=== PATIENT | male | born 1950 | race Caucasian/White ===

== ENCOUNTER → 2019-04-28 | Outpatient (REF) | LOC: M LAB LCGH 15:28 | PROVIDERS: ATTEND Orthopaedic Surgery | DX: M72.0 Palmar fascial fibromatosis [Dupuytren] (principal) ==

== ENCOUNTER → 2020-12-28 | Outpatient (REF) | payer MEDICARE | LOC: M LAB REF 14:01 | PROVIDERS: ATTEND Physician Assistant | DX: L82.1 Other seborrheic keratosis (principal) | CPT/HCPCS: 11102; 17000; 88305; G0463 ==

== ENCOUNTER 2024-07-21 15:16 | Observation (INO) | payer MEDICARE ==
[~2024-07-21] VITALS: Ht 165.1 cm; Wt 76.0 kg
[2024-07-21 16:20] LABS: BASO % 0.3 % (0.0-1.0); EOS % 0.3 % (0.0-3.0); HEMOGLOBIN 10.5 g/dl (13.5-17.5); LYMPH # 0.7 10^3/uL (1.5-5.0); LYMPH % 9.6 % (24.0-44.0); MEAN CORPUSCULAR HEMOGLOBIN 29.4 pg (27.0-33.0); MEAN CORPUSCULAR HGB CONC 33.9 g/dl (32.0-36.5); MEAN CORPUSCULAR VOLUME 86.8 fl (80.0-96.0); MONO # 0.3 10^3/uL (0.0-0.8); MONO % 4.6 % (2.0-8.0); NEUTROPHILS # 5.7 10^3/uL (1.5-8.5); NEUTROPHILS % 84.5 % (36.0-66.0); PLATELET COUNT, AUTOMATED 283 10^3/uL (150-450); RED BLOOD COUNT 3.57 10^6/uL (4.30-6.10); WHITE BLOOD COUNT 6.8 10^3/uL (4.0-10.0)
[2024-07-21 16:53] LABS: CALCIUM LEVEL 8.5 MG/DL (8.3-10.6); CREATININE FOR GFR 2.37 MG/DL (0.70-1.30); GLOMERULAR FILTRATION RATE 28.7 (>42); POTASSIUM SERUM 4.3 MMOL/L (3.5-5.1)
[2024-07-21 17:36] LABS: INR 2.09; PROTHROMBIN TIME 23.6 SECONDS (12.5-14.5)
[2024-07-21] MEDS: NS (Normal Saline) 0.9% 1,000 ML IV ONE (18:20)
[2024-07-21] MEDS ORDERED: **hydrALAZINE HCL** 25 MG TAB PO PRN (18:25)
[2024-07-21] MEDS ORDERED: WARF-22 PO (19:06)
[2024-07-21] MEDS ORDERED: CARV12.5 PO (19:06)
[2024-07-21] MEDS ORDERED: PRED20TA PO (19:06)
[2024-07-21] MEDS ORDERED: EZET10TA21 PO (19:06)
[2024-07-21] MEDS ORDERED: SULF400T14 PO (19:06)
[2024-07-21] MEDS ORDERED: PANT40TA29 PO (19:06)
[2024-07-21] MEDS ORDERED: AMLO1TAB25 PO (19:06)
[2024-07-21] MEDS ORDERED: PRIM125TAB PO (19:06)
[2024-07-21] MEDS ORDERED: PHEN100C PO (19:06)
[2024-07-21] MEDS ORDERED: REPA140I PO (19:06)
[2024-07-21] MEDS ORDERED: WARF-21 PO (19:06)
[2024-07-21] MEDS ORDERED: CALC600C3 PO (19:08)
[2024-07-21] MEDS ORDERED: ASPI81TA26 PO (19:08)
[2024-07-21] MEDS ORDERED: D-50TAB PO (19:08)
[2024-07-21] MEDS ORDERED: HOME MED LIST COMPLETE! XX SCH (19:10)
[2024-07-21 20:01] LABS: KETONE, URINE AUTO RFX NEGATIVE (NEGATIVE); NITRITE, URINE AUTO RFX NEGATIVE (NEGATIVE); RBC, URINE AUTO RFX 1 /HPF (0-3); SQUAM EPITHELIAL CELL UR AURFX 0 /HPF (0-6); WBC, URINE AUTO RFX 7 /HPF (0-3)
[2024-07-21 20:02] LABS: LEUKOCYTE ESTERASE UR AUTO RFX 1+ (NEGATIVE)
[2024-07-21 20:19] VITALS: BP 172/94; TEMP 97.2; O2SAT 97
[2024-07-21 20:55] LABS: PERCENT SATURATION 26.6 % (19.7-50.0)
[2024-07-21 20:57] LABS: FERRITIN 181.1 NG/ML (10.5-307.3); FOLATE 10.55 NG/ML (>5.4)
[2024-07-21 21:07] VITALS: BP 165/88
[2024-07-21] MEDS: NS (Normal Saline) 0.9% 1,000 ML IV SCH (21:07)
[2024-07-22 05:24] VITALS: BP 150/81; TEMP 97.7; O2SAT 95
[2024-07-22 06:05] LABS: HEMATOCRIT 26.6 % (42.0-52.0); HEMOGLOBIN 8.9 g/dl (13.5-17.5); MEAN CORPUSCULAR HEMOGLOBIN 29.2 pg (27.0-33.0); MEAN CORPUSCULAR HGB CONC 33.5 g/dl (32.0-36.5); MEAN CORPUSCULAR VOLUME 87.2 fl (80.0-96.0); PLATELET COUNT, AUTOMATED 254 10^3/uL (150-450); RED BLOOD COUNT 3.05 10^6/uL (4.30-6.10); WHITE BLOOD COUNT 6.9 10^3/uL (4.0-10.0)
[2024-07-22 06:21] LABS: INR 2.07; PROTHROMBIN TIME 23.5 SECONDS (12.5-14.5)
[2024-07-22 06:42] LABS: CALCIUM LEVEL 7.4 MG/DL (8.3-10.6); CREATININE FOR GFR 2.36 MG/DL (0.70-1.30); GLOMERULAR FILTRATION RATE 28.9 (>42); POTASSIUM SERUM 3.2 MMOL/L (3.5-5.1)
[2024-07-22 09:19] VITALS: BP 160/86
[2024-07-22] MEDS: CARVedilol 12.5 MG TAB PO SCH (09:19)
[2024-07-22] MEDS: PHENYTOIN ER 100 MG CAP PO SCH (09:20)
[2024-07-22] MEDS: PANTOPRAZOLE 40MG TAB (PROTONIX) PO SCH (09:20)
[2024-07-22] MEDS: ASPIRIN 81MG ENTERIC TABLET PO SCH (09:21)
[2024-07-22] MEDS: predniSONE 20 MG TAB PO SCH (09:21)
[2024-07-22] MEDS: POTASSIUM CHLORIDE 10MEQ SR TABLET PO ONE (09:21)
[2024-07-22] MEDS ORDERED: PRED20TA PO ×2 (11:41→11:42)
[2024-07-22 12:00] VITALS: BP 145/79; TEMP 97.3; O2SAT 95
[2024-07-22] MEDS ORDERED: EZETIMIBE 10MG TABLET (ZETIA) PO SCH (21:00)
[2024-07-22] MEDS ORDERED: PRIMIDONE 250 MG TAB PO SCH (21:00)
== END 2024-07-22 13:45 | disposition home or self-care (01) ==
LOC: M ED 15:16 → M ED INP 15:17 → M MSPAV 20:11
PROVIDERS: ADMIT Internal Medicine; ATTEND Internal Medicine
DX: N17.9 Acute kidney failure, unspecified (principal); N18.9 Chronic kidney disease, unspecified; Z85.528 Personal history of other malignant neoplasm of kidney; Z90.5 Acquired absence of kidney; R94.4 Abnormal results of kidney function studies; C78.89 Secondary malignant neoplasm of other digestive organs; D63.1 Anemia in chronic kidney disease; I12.9 Hypertensive chronic kidney disease with stage 1 through stage 4 chronic kidney disease, or unspecified chronic kidney disease; G40.909 Epilepsy, unspecified, not intractable, without status epilepticus; I25.10 Atherosclerotic heart disease of native coronary artery without angina pectoris; Z95.5 Presence of coronary angioplasty implant and graft; Z86.718 Personal history of other venous thrombosis and embolism; Z79.01 Long term (current) use of anticoagulants
CPT/HCPCS: 36415; 71045; 80048; 81001; 82607; 82728; 82746; 83550; 84466; 85025; 85027; 85610; 85730; 87086; 93005; 93041; 94760; 96360; 96361; 99285; G0378; J7512

== ENCOUNTER 2024-07-31 15:39 | Observation (INO) | payer MEDICARE ==
[~2024-07-31] VITALS: Ht 165.1 cm; Wt 75.3 kg
[~2024-07-31 15:39] MED LIST changes: -ACETAMINOPHEN 325 MG TAB PO ONE; -ENOX40IN3 SC; -LIDOCAINE 1% MDV 20ML VIAL As Ordered ONE; -LOVE0.4I2 SC; -ONDANSETRON 4MG TAB PO ONE
[2024-07-31] MEDS ORDERED: ONDANSETRON 4MG 2ML VIAL As Ordered ONE (16:12)
[2024-07-31] MEDS ORDERED: ISOVUE-300 61% 100ML VIAL As Ordered ONE (17:20)
[2024-07-31] MEDS ORDERED: LIDOCAINE 1% MDV 20ML VIAL As Ordered ONE (17:21)
[2024-07-31] MEDS ORDERED: PERCOCET 5MG/325MG TAB PO PRN (17:30)
[2024-07-31] MEDS ORDERED: ONDANSETRON 4MG 2ML VIAL IV PRN (17:30)
[2024-07-31] MEDS ORDERED: NS (Normal Saline) 0.9% 1,000 ML IV SCH (17:30)
[2024-07-31] MEDS ORDERED: MOM 30ML SUSPENSION UDC PO PRN (17:40)
[2024-07-31] MEDS ORDERED: ONDANSETRON 4MG TAB PO PRN (17:40)
[2024-07-31] MEDS ORDERED: MAALOX 30 ML SUSP *UDC PO PRN (17:40)
[2024-07-31] MEDS ORDERED: ACETAMINOPHEN 325 MG TAB As Ordered ONE (17:40)
[2024-07-31] MEDS ORDERED: ACETAMINOPHEN 325 MG TAB PO PRN (17:40)
[2024-07-31] MEDS: ACETAMINOPHEN 325 MG TAB PO PRN (17:43)
[2024-07-31] MEDS: ONDANSETRON 4MG 2ML VIAL IV ONE (18:15)
[2024-07-31 18:34] LABS: BASO % 0.1 % (0.0-1.0); EOS # 0.1 10^3/uL (0.0-0.5); EOS % 0.7 % (0.0-3.0); HEMATOCRIT 29.1 % (42.0-52.0); HEMOGLOBIN 9.3 g/dl (13.5-17.5); LYMPH # 1.1 10^3/uL (1.5-5.0); LYMPH % 12.6 % (24.0-44.0); MEAN CORPUSCULAR HEMOGLOBIN 28.8 pg (27.0-33.0); MEAN CORPUSCULAR VOLUME 90.1 fl (80.0-96.0); MONO # 0.8 10^3/uL (0.0-0.8); MONO % 9.5 % (2.0-8.0); NEUTROPHILS # 6.4 10^3/uL (1.5-8.5); NEUTROPHILS % 76.4 % (36.0-66.0); PLATELET COUNT, AUTOMATED 133 10^3/uL (150-450); RED BLOOD COUNT 3.23 10^6/uL (4.30-6.10); WHITE BLOOD COUNT 8.3 10^3/uL (4.0-10.0)
[2024-07-31 18:46] LABS: ALBUMIN 2.9 G/DL (3.2-5.2); BILIRUBIN,TOTAL 0.3 MG/DL (0.3-1.2); CALCIUM LEVEL 8.3 MG/DL (8.3-10.6); CREATININE FOR GFR 2.59 MG/DL (0.70-1.30); GLOMERULAR FILTRATION RATE 25.9 (>42); PHOSPHORUS LEVEL 4.9 MG/DL (2.4-5.1); POTASSIUM SERUM 3.8 MMOL/L (3.5-5.1); TOTAL PROTEIN 5.9 G/DL (5.7-8.2)
[2024-07-31 19:50] VITALS: BP 158/82; TEMP 97.8; O2SAT 97
[2024-07-31] MEDS ORDERED: PRED20TA PO (20:53)
[2024-07-31] MEDS: NS (Normal Saline) 0.9% 1,000 ML IV SCH (20:55)
[2024-07-31] MEDS ORDERED: HOME MED LIST COMPLETE! XX SCH (20:55)
[2024-07-31] MEDS: EZETIMIBE 10MG TABLET (ZETIA) PO SCH (21:43)
[2024-07-31] MEDS: PHENYTOIN ER 100 MG CAP PO SCH (21:44)
[2024-07-31] MEDS: predniSONE 20 MG TAB PO SCH (21:45)
[2024-07-31] MEDS: PRIMIDONE 250 MG TAB PO SCH (21:45)
[2024-07-31] MEDS: CARVedilol 12.5 MG TAB PO SCH (21:45)
[2024-07-31] MEDS: ONDANSETRON 4MG 2ML VIAL IV PRN (21:56)
[2024-07-31 23:41] VITALS: BP 125/69; TEMP 98.3; O2SAT 96
[2024-08-01] VITALS (9 sets, daily range): BP systolic 129–159; BP diastolic 73–82; TEMP 97.6–98.8; O2SAT 66–98
[2024-08-01 00:58] LABS: HEMATOCRIT 24.9 % (42.0-52.0); HEMOGLOBIN 8.2 g/dl (13.5-17.5); MEAN CORPUSCULAR HEMOGLOBIN 29.2 pg (27.0-33.0); MEAN CORPUSCULAR HGB CONC 32.9 g/dl (32.0-36.5); MEAN CORPUSCULAR VOLUME 88.6 fl (80.0-96.0); PLATELET COUNT, AUTOMATED 109 10^3/uL (150-450); RED BLOOD COUNT 2.81 10^6/uL (4.30-6.10); WHITE BLOOD COUNT 5.7 10^3/uL (4.0-10.0)
[2024-08-01 06:36] LABS: HEMATOCRIT 24.3 % (42.0-52.0); HEMOGLOBIN 7.9 g/dl (13.5-17.5); MEAN CORPUSCULAR HEMOGLOBIN 29.2 pg (27.0-33.0); MEAN CORPUSCULAR HGB CONC 32.5 g/dl (32.0-36.5); MEAN CORPUSCULAR VOLUME 89.7 fl (80.0-96.0); PLATELET COUNT, AUTOMATED 111 10^3/uL (150-450); RED BLOOD COUNT 2.71 10^6/uL (4.30-6.10); WHITE BLOOD COUNT 5.8 10^3/uL (4.0-10.0)
[2024-08-01 06:56] LABS: ALBUMIN 2.5 G/DL (3.2-5.2); ALKALINE PHOSPHATASE 51 U/L (40-129); ALT/SGPT 14 U/L (7.0-40); AST/SGOT < 8 U/L (<34); BILIRUBIN,TOTAL 0.3 MG/DL (0.3-1.2); BLOOD UREA NITROGEN 40 MG/DL (9-23); CALCIUM LEVEL 7.7 MG/DL (8.3-10.6); CARBON DIOXIDE LEVEL 22 MMOL/L (20-31); CHLORIDE LEVEL 104 MMOL/L (98-107); CREATININE FOR GFR 2.99 MG/DL (0.70-1.30); GLUCOSE, FASTING 136 MG/DL (74-106); POTASSIUM SERUM 4.3 MMOL/L (3.5-5.1); SODIUM LEVEL 138 MMOL/L (136-145); TOTAL PROTEIN 5.2 G/DL (5.7-8.2)
[2024-08-01] MEDS: PANTOPRAZOLE 40MG TAB (PROTONIX) PO SCH (08:07)
[2024-08-01] MEDS: VITAMIN D 1,000 INTERNATIONAL UNITS TABLET PO SCH (08:07)
[2024-08-01] MEDS ORDERED: predniSONE 20 MG TAB PO SCH (09:00)
[2024-08-01] MEDS: NS (Normal Saline) 0.9% 1,000 ML IV SCH (10:06)
[2024-08-01 11:08] LABS: HEMATOCRIT 23.4 % (42.0-52.0); HEMOGLOBIN 7.8 g/dl (13.5-17.5)
[2024-08-01 11:34] LABS: CALCIUM LEVEL 7.6 MG/DL (8.3-10.6); GLOMERULAR FILTRATION RATE 21.9 (>42); POTASSIUM SERUM 3.9 MMOL/L (3.5-5.1)
[2024-08-01 16:50] LABS: HEMATOCRIT 26.1 % (42.0-52.0); HEMOGLOBIN 8.7 g/dl (13.5-17.5)
[2024-08-01 17:14] LABS: CALCIUM LEVEL 7.1 MG/DL (8.3-10.6); CREATININE FOR GFR 2.95 MG/DL (0.70-1.30); GLOMERULAR FILTRATION RATE 22.3 (>42)
[2024-08-02 00:02] VITALS: BP 153/78; TEMP 98.7; O2SAT 92
[2024-08-02 00:46] LABS: HEMATOCRIT 24.1 % (42.0-52.0); HEMOGLOBIN 8.2 g/dl (13.5-17.5)
[2024-08-02 04:11] VITALS: BP 144/80; TEMP 98.5; O2SAT 5
[2024-08-02 04:22] LABS: BASO % 0.3 % (0.0-1.0); EOS # 0.1 10^3/uL (0.0-0.5); EOS % 1.1 % (0.0-3.0); HEMATOCRIT 25.5 % (42.0-52.0); HEMOGLOBIN 8.5 g/dl (13.5-17.5); LYMPH # 0.6 10^3/uL (1.5-5.0); MEAN CORPUSCULAR HEMOGLOBIN 29.8 pg (27.0-33.0); MEAN CORPUSCULAR HGB CONC 33.3 g/dl (32.0-36.5); MEAN CORPUSCULAR VOLUME 89.5 fl (80.0-96.0); MONO # 0.7 10^3/uL (0.0-0.8); MONO % 10.2 % (2.0-8.0); NEUTROPHILS # 5.6 10^3/uL (1.5-8.5); NEUTROPHILS % 79.8 % (36.0-66.0); RED BLOOD COUNT 2.85 10^6/uL (4.30-6.10)
[2024-08-02 04:43] LABS: CREATININE FOR GFR 3.2 MG/DL (0.70-1.30); GLOMERULAR FILTRATION RATE 20.3 (>42); MAGNESIUM LEVEL 1.9 MG/DL (1.8-2.4); POTASSIUM SERUM 4.4 MMOL/L (3.5-5.1)
[2024-08-02 04:49] LABS: PLATELET COUNT, AUTOMATED 93 10^3/uL (150-450)
[2024-08-02 08:00] VITALS: BP 154/85; TEMP 98.7; O2SAT 90
[2024-08-02 08:04] VITALS: BP 157/79
[2024-08-02] MEDS ORDERED: LOVE0.4I2 SC (08:53)
[2024-08-02] MEDS ORDERED: ENOX40IN3 SC (08:59)
[2024-08-02 09:26] LABS: INR 1.24; PROTHROMBIN TIME 15.9 SECONDS (12.5-14.5)
== END 2024-08-02 11:09 | disposition home or self-care (01) ==
LOC: M IRPRO 15:39 → M PCU 19:41
PROVIDERS: ADMIT Internal Medicine; ATTEND Internal Medicine
DX: N17.9 Acute kidney failure, unspecified (principal); N18.30 Chronic kidney disease, stage 3 unspecified; N28.89 Other specified disorders of kidney and ureter; S37.091A Other injury of right kidney, initial encounter; X58.XXXA Exposure to other specified factors, initial encounter; Y92.239 Unspecified place in hospital as the place of occurrence of the external cause; Z85.528 Personal history of other malignant neoplasm of kidney; Z90.5 Acquired absence of kidney; R11.2 Nausea with vomiting, unspecified; R10.11 Right upper quadrant pain; J90 Pleural effusion, not elsewhere classified; D63.1 Anemia in chronic kidney disease; I12.9 Hypertensive chronic kidney disease with stage 1 through stage 4 chronic kidney disease, or unspecified chronic kidney disease; I25.10 Atherosclerotic heart disease of native coronary artery without angina pectoris; Z95.5 Presence of coronary angioplasty implant and graft; Z86.718 Personal history of other venous thrombosis and embolism; R73.01 Impaired fasting glucose; E78.5 Hyperlipidemia, unspecified; C78.89 Secondary malignant neoplasm of other digestive organs; R56.9 Unspecified convulsions; E55.9 Vitamin D deficiency, unspecified; N40.0 Benign prostatic hyperplasia without lower urinary tract symptoms; K21.9 Gastro-esophageal reflux disease without esophagitis; Z87.891 Personal history of nicotine dependence; Z80.42 Family history of malignant neoplasm of prostate; Z80.3 Family history of malignant neoplasm of breast; Z80.0 Family history of malignant neoplasm of digestive organs; Z84.0 Family history of diseases of the skin and subcutaneous tissue; Z79.899 Other long term (current) drug therapy; Z79.01 Long term (current) use of anticoagulants; Z79.52 Long term (current) use of systemic steroids; Z79.61 Long term (current) use of immunomodulator
CPT/HCPCS: 36253; 36415; 74176; 76705; 76775; 76942; 80048; 80053; 83605; 83735; 84100; 85014; 85018; 85025; 85027; 85049; 85055; 85610; 86850; 86900; 86901; 86920; 88300; 96361; 96374; C1760; C1887; C1894; G0378; J2405; J7512; P9016; Q9967

== ENCOUNTER → 2024-07-31 | Outpatient (CLI) | payer MEDICARE ==
[~2024-07-31] MED LIST: ACETAMINOPHEN 325 MG TAB PO ONE; AMLO1TAB25 PO; ASPI81TA26 PO; CALC600C3 PO; CARV12.5 PO; D-50TAB PO; ENOX40IN3 SC; EZET10TA21 PO; LIDOCAINE 1% MDV 20ML VIAL As Ordered ONE; LOVE0.4I2 SC; ONDANSETRON 4MG TAB PO ONE; PANT40TA29 PO; PHEN100C PO; PRED20TA PO; PRIM125TAB PO; REPA140I PO; SULF400T14 PO; WARF-21 PO; WARF-22 PO
[2024-07-31 10:42] VITALS: TEMP 97.4
[2024-07-31 12:58] VITALS: BP 190/92
[2024-07-31] MEDS: CARVedilol 6.25 MG TAB PO ONE (12:58)
[2024-07-31 15:15] VITALS: BP 159/84; O2SAT 97
== END ==
LOC: M IRPRO 10:26
PROVIDERS: ATTEND Internal Medicine Nephrology
DX: N17.9 Acute kidney failure, unspecified (principal); N05.9 Unspecified nephritic syndrome with unspecified morphologic changes

== ENCOUNTER → 2024-09-08 | Outpatient (REF) | payer MEDICARE ==
[~2024-09-08] MED LIST changes: +ENOX40IN3 SC; +LOVE0.4I2 SC
[2024-09-08 18:47] LABS: PERCENT SATURATION 34.8 % (19.7-50.0)
== END ==
LOC: M LAB REF 17:17
PROVIDERS: ATTEND Internal Medicine Nephrology
DX: D50.9 Iron deficiency anemia, unspecified (principal)

== ENCOUNTER 2024-10-19 11:37 | Inpatient (IN) | payer MEDICARE ==
[~2024-10-19] VITALS: Ht 165.1 cm; Wt 71.5 kg
[~2024-10-19 11:37] MED LIST changes: -CARV6.25 PO; -PANT20TA51 PO; -PRIM250T8 PO; -RETA1000 INJ
[2024-10-19] MEDS: NS (Normal Saline) 0.9% 1,000 ML IV ONE ×2 (13:03→15:39)
[2024-10-19 16:04] LABS: KETONE, URINE AUTO RFX NEGATIVE (NEGATIVE); LEUKOCYTE ESTERASE UR AUTO RFX NEGATIVE (NEGATIVE); MUCUS, URINE RFX SMALL (NEGATIVE); NITRITE, URINE AUTO RFX NEGATIVE (NEGATIVE); RBC, URINE AUTO RFX 1 /HPF (0-3); SQUAM EPITHELIAL CELL UR AURFX 0 /HPF (0-6); WBC, URINE AUTO RFX 1 /HPF (0-3)
[2024-10-19] MEDS ORDERED: PRIM250T8 PO (18:08)
[2024-10-19] MEDS ORDERED: CARV6.25 PO (18:08)
[2024-10-19] MEDS ORDERED: RETA1000 INJ (18:08)
[2024-10-19] MEDS ORDERED: PANT20TA51 PO (18:08)
[2024-10-19] MEDS ORDERED: HOME MED LIST COMPLETE! XX SCH (18:10)
[2024-10-19] MEDS ORDERED: ONDANSETRON 4MG ORAL DISINTEGRATING TAB PO PRN (18:20)
[2024-10-19] MEDS ORDERED: NS (Normal Saline) 0.9% 1,000 ML IV SCH (18:20)
[2024-10-19] MEDS: NS (Normal Saline) 0.9% 1,000 ML IV SCH (19:59)
[2024-10-19] MEDS ORDERED: PRIMIDONE 125MG PER 1/2 TABLET PO SCH (21:00)
[2024-10-19] MEDS: EZETIMIBE 10MG TABLET (ZETIA) PO SCH (21:10)
[2024-10-19] MEDS: PHENYTOIN ER 100 MG CAP PO SCH (21:11)
[2024-10-19] MEDS: PRIMIDONE 250 MG TAB PO SCH (21:11)
[2024-10-20 08:29] LABS: BASO % 0.6 % (0.0-1.0); EOS # 0.4 10^3/uL (0.0-0.5); HEMATOCRIT 22.8 % (42.0-52.0); HEMOGLOBIN 7.7 g/dl (13.5-17.5); LYMPH % 28.5 % (24.0-44.0); MEAN CORPUSCULAR HEMOGLOBIN 30.8 pg (27.0-33.0); MEAN CORPUSCULAR HGB CONC 33.8 g/dl (32.0-36.5); MEAN CORPUSCULAR VOLUME 91.2 fl (80.0-96.0); MONO # 0.6 10^3/uL (0.0-0.8); MONO % 17.6 % (2.0-8.0); NEUTROPHILS # 1.5 10^3/uL (1.5-8.5); NEUTROPHILS % 41.7 % (36.0-66.0); PLATELET COUNT, AUTOMATED 166 10^3/uL (150-450); WHITE BLOOD COUNT 3.5 10^3/uL (4.0-10.0)
[2024-10-20 08:33] VITALS: BP 145/69; TEMP 98.7; O2SAT 96
[2024-10-20 08:42] LABS: INR 3.74; PROTHROMBIN TIME 36.7 SECONDS (12.5-14.5)
[2024-10-20 09:11] LABS: CALCIUM LEVEL 8.2 MG/DL (8.3-10.6); CREATININE FOR GFR 3.98 MG/DL (0.70-1.30); GLOMERULAR FILTRATION RATE 15.8 (>42); MAGNESIUM LEVEL 1.9 MG/DL (1.8-2.4); POTASSIUM SERUM 3.2 MMOL/L (3.5-5.1)
[2024-10-20] MEDS: PANTOPRAZOLE 20 MG TAB PO SCH (09:57)
[2024-10-20 11:59] VITALS: BP 150/89; TEMP 97.8; O2SAT 98
[2024-10-20] MEDS: amLODIPine 5 MG TAB PO STA (12:54)
[2024-10-20] MEDS: SODIUM BICARBONATE 75 MEQ in KCL 20MEQ IN 0.45NS 1000ML 1,000 ML IV SCH (15:12)
[2024-10-20 15:40] VITALS: BP_SYST 122; BP_SYST 144; BP_SYST 99; BP_DIAS 62; BP_DIAS 64; BP_DIAS 84
[2024-10-20 20:32] VITALS: BP 137/80; TEMP 98.8; O2SAT 98
[2024-10-20] MEDS: METOPROLOL SUCC *XL* 12.5MG PER 1/2 TAB (TopROL *XL*) PO SCH (20:50)
[2024-10-21] VITALS (7 sets, daily range): BP systolic 101–165; BP diastolic 65–78; TEMP 98–99.2; O2SAT 95–97
[2024-10-21 06:39] LABS: BASO % 0.3 % (0.0-1.0); EOS # 0.3 10^3/uL (0.0-0.5); EOS % 8.8 % (0.0-3.0); HEMATOCRIT 21.9 % (42.0-52.0); HEMOGLOBIN 7.5 g/dl (13.5-17.5); LYMPH # 1.1 10^3/uL (1.5-5.0); MEAN CORPUSCULAR HEMOGLOBIN 30.7 pg (27.0-33.0); MEAN CORPUSCULAR HGB CONC 34.2 g/dl (32.0-36.5); MEAN CORPUSCULAR VOLUME 89.8 fl (80.0-96.0); MONO # 0.8 10^3/uL (0.0-0.8); MONO % 20.9 % (2.0-8.0); NEUTROPHILS # 1.5 10^3/uL (1.5-8.5); NEUTROPHILS % 40.2 % (36.0-66.0); PLATELET COUNT, AUTOMATED 173 10^3/uL (150-450); RED BLOOD COUNT 2.44 10^6/uL (4.30-6.10); WHITE BLOOD COUNT 3.7 10^3/uL (4.0-10.0)
[2024-10-21 06:48] LABS: INR 2.67; PROTHROMBIN TIME 28.4 SECONDS (12.5-14.5)
[2024-10-21 06:56] LABS: CALCIUM LEVEL 7.8 MG/DL (8.3-10.6); CREATININE FOR GFR 3.75 MG/DL (0.70-1.30); GLOMERULAR FILTRATION RATE 16.9 (>42); MAGNESIUM LEVEL 1.6 MG/DL (1.8-2.4); POTASSIUM SERUM 3.2 MMOL/L (3.5-5.1)
[2024-10-21 06:58] LABS: PHENYTOIN (DILANTIN) 2.5 UG/ML (10.0-20.0)
[2024-10-21] MEDS: POTASSIUM CHLORIDE 10MEQ SR TABLET PO SCH (11:34)
[2024-10-21] MEDS: MAG SULF 1GM/100ML (MAG RUN) 1 GM in IV 1 EA IV SCH (11:35)
[2024-10-21] MEDS: WARFARIN SOD 5MG TAB PO SCH (16:11)
[2024-10-22] VITALS (8 sets, daily range): BP systolic 85–138; BP diastolic 55–79; TEMP 98.3–99.5; O2SAT 96–99
[2024-10-22 06:13] LABS: BASO % 0.5 % (0.0-1.0); EOS # 0.4 10^3/uL (0.0-0.5); HEMATOCRIT 21.6 % (42.0-52.0); HEMOGLOBIN 7.4 g/dl (13.5-17.5); LYMPH # 1.1 10^3/uL (1.5-5.0); LYMPH % 27.8 % (24.0-44.0); MEAN CORPUSCULAR HEMOGLOBIN 30.5 pg (27.0-33.0); MEAN CORPUSCULAR HGB CONC 34.3 g/dl (32.0-36.5); MEAN CORPUSCULAR VOLUME 88.9 fl (80.0-96.0); MONO # 0.7 10^3/uL (0.0-0.8); MONO % 18.4 % (2.0-8.0); NEUTROPHILS # 1.6 10^3/uL (1.5-8.5); NEUTROPHILS % 42.5 % (36.0-66.0); PLATELET COUNT, AUTOMATED 170 10^3/uL (150-450); RED BLOOD COUNT 2.43 10^6/uL (4.30-6.10); WHITE BLOOD COUNT 3.8 10^3/uL (4.0-10.0)
[2024-10-22 06:15] LABS: CALCIUM LEVEL 7.9 MG/DL (8.3-10.6); CREATININE FOR GFR 3.79 MG/DL (0.70-1.30); GLOMERULAR FILTRATION RATE 16.7 (>42); POTASSIUM SERUM 3.4 MMOL/L (3.5-5.1)
[2024-10-22 06:25] LABS: INR 2.09; PROTHROMBIN TIME 23.6 SECONDS (12.5-14.5)
[2024-10-22] MEDS: POTASSIUM CHLORIDE 10MEQ SR TABLET PO STA (08:25)
[2024-10-22] MEDS ORDERED: WARF-21 PO (13:50)
[2024-10-22] MEDS ORDERED: WARF-23 PO (13:50)
== END 2024-10-22 18:10 | disposition home or self-care (01) | DRG 683 ==
LOC: M ED 11:37 → M ED INP 17:50 → M MS4PR 10-20 08:35
PROVIDERS: ADMIT Student in an Organized Health Care Education/Training Program; ATTEND Internal Medicine
PROC: B246ZZZ Ultrasonography of Right and Left Heart (ICD-10-PCS; principal; 2024-10-22)
DX: N17.9 Acute kidney failure, unspecified (principal); C64.2 Malignant neoplasm of left kidney, except renal pelvis; N18.4 Chronic kidney disease, stage 4 (severe); I95.1 Orthostatic hypotension; I25.10 Atherosclerotic heart disease of native coronary artery without angina pectoris; G40.909 Epilepsy, unspecified, not intractable, without status epilepticus; K21.9 Gastro-esophageal reflux disease without esophagitis; I12.9 Hypertensive chronic kidney disease with stage 1 through stage 4 chronic kidney disease, or unspecified chronic kidney disease; F41.1 Generalized anxiety disorder; Z87.891 Personal history of nicotine dependence; Z79.899 Other long term (current) drug therapy; Z79.01 Long term (current) use of anticoagulants; Z90.5 Acquired absence of kidney; Z92.25 Personal history of immunosuppression therapy; Z95.5 Presence of coronary angioplasty implant and graft; Z86.718 Personal history of other venous thrombosis and embolism; D63.0 Anemia in neoplastic disease

== ENCOUNTER → 2024-10-19 | Outpatient (CLI) | payer MEDICARE ==
[~2024-10-19] MED LIST changes: +CARV6.25 PO; +ONDA-282 PO; +PANT20TA51 PO; +PRIM250T8 PO; +RETA1000 INJ
[2024-10-19] MEDS: NS (Normal Saline) 0.9% 1,000 ML IV ONE (11:12)
[2024-10-19 11:22] LABS: BASO % 0.6 % (0.0-1.0); EOS # 0.4 10^3/uL (0.0-0.5); EOS % 8.2 % (0.0-3.0); HEMATOCRIT 25.3 % (42.0-52.0); HEMOGLOBIN 8.7 g/dl (13.5-17.5); LYMPH # 1.4 10^3/uL (1.5-5.0); LYMPH % 27.9 % (24.0-44.0); MEAN CORPUSCULAR HEMOGLOBIN 31.2 pg (27.0-33.0); MEAN CORPUSCULAR HGB CONC 34.4 g/dl (32.0-36.5); MEAN CORPUSCULAR VOLUME 90.7 fl (80.0-96.0); MONO # 0.8 10^3/uL (0.0-0.8); NEUTROPHILS # 2.4 10^3/uL (1.5-8.5); NEUTROPHILS % 47.7 % (36.0-66.0); PLATELET COUNT, AUTOMATED 214 10^3/uL (150-450); RED BLOOD COUNT 2.79 10^6/uL (4.30-6.10)
[2024-10-19 11:34] LABS: INR 3.48; PROTHROMBIN TIME 34.7 SECONDS (12.5-14.5)
[2024-10-19 11:55] LABS: BILIRUBIN,TOTAL 0.3 MG/DL (0.3-1.2); CALCIUM LEVEL 9.3 MG/DL (8.3-10.6); CREATININE FOR GFR 4.32 MG/DL (0.70-1.30); GLOMERULAR FILTRATION RATE 14.4 (>42); POTASSIUM SERUM 3.5 MMOL/L (3.5-5.1); TOTAL PROTEIN 5.9 G/DL (5.7-8.2)
== END ==
LOC: M ONCR 09:42
PROVIDERS: ATTEND General Practice
DX: C64.2 Malignant neoplasm of left kidney, except renal pelvis (principal); I95.1 Orthostatic hypotension; N18.4 Chronic kidney disease, stage 4 (severe); Z79.01 Long term (current) use of anticoagulants; Z79.899 Other long term (current) drug therapy; Z87.891 Personal history of nicotine dependence; Z90.5 Acquired absence of kidney; Z92.25 Personal history of immunosuppression therapy

== ENCOUNTER 2024-10-26 22:22 | Inpatient (IN) | payer MEDICARE ==
[~2024-10-26] VITALS: Ht 165.1 cm; Wt 66.8 kg
[~2024-10-26 22:22] MED LIST changes: +CARV6.25 PO; +PANT20TA51 PO; +PRIM250T8 PO; +RETA1000 INJ; +WARF-23 PO
[2024-10-27 00:09] LABS: BLOOD UREA NITROGEN 35 MG/DL (9-23); CALCIUM LEVEL 9.6 MG/DL (8.3-10.6); CARBON DIOXIDE LEVEL 24 MMOL/L (20-31); CHLORIDE LEVEL 94 MMOL/L (98-107); CREATININE FOR GFR 3.74 MG/DL (0.70-1.30); GLOMERULAR FILTRATION RATE 16.2 (>42); GLUCOSE, FASTING 118 MG/DL (74-106); POTASSIUM SERUM 3.5 MMOL/L (3.5-5.1); SODIUM LEVEL 130 MMOL/L (136-145)
[2024-10-27 00:17] LABS: HEMATOCRIT 29.6 % (42.0-52.0); HEMOGLOBIN 10.1 g/dl (13.5-17.5); MEAN CORPUSCULAR HEMOGLOBIN 30.7 pg (27.0-33.0); MEAN CORPUSCULAR HGB CONC 34.1 g/dl (32.0-36.5); PLATELET COUNT, AUTOMATED 202 10^3/uL (150-450); RED BLOOD COUNT 3.29 10^6/uL (4.30-6.10); WHITE BLOOD COUNT 4.5 10^3/uL (4.0-10.0)
[2024-10-27 01:54] LABS: LIPASE 51 U/L (12-53)
[2024-10-27 01:56] LABS: ALBUMIN 3.2 G/DL (3.2-5.2); ALKALINE PHOSPHATASE 104 U/L (40-129); ALT/SGPT 21 U/L (7.0-40); AST/SGOT 28 U/L (<34); BILIRUBIN,DIRECT < 0.1 MG/DL (<0.4); BILIRUBIN,TOTAL 0.2 MG/DL (0.3-1.2); CK-MB VALUE MASS < 1.0 NG/ML (<3.6)
[2024-10-27 02:04] LABS: CPK CREATINE PHOSPHOKINASE 67 U/L (46-171); MB/CK RELATIVE INDEX 1.49 (< OR =4)
[2024-10-27] MEDS: NS (Normal Saline) 0.9% 1,000 ML IV ONE (03:35)
[2024-10-27 04:29] LABS: INR 2.8; PROTHROMBIN TIME 29.4 SECONDS (12.5-14.5)
[2024-10-27] MEDS ORDERED: ACETAMINOPHEN 325 MG TAB PO PRN (05:25)
[2024-10-27 07:32] LABS: MAGNESIUM LEVEL 1.9 MG/DL (1.8-2.4)
[2024-10-27] MEDS: MIDODRINE 5 MG TAB PO SCH (08:00)
[2024-10-27 08:16] LABS: BASO % 0.8 % (0.0-1.0); EOS # 0.3 10^3/uL (0.0-0.5); HEMATOCRIT 25.4 % (42.0-52.0); HEMOGLOBIN 8.6 g/dl (13.5-17.5); LYMPH # 0.9 10^3/uL (1.5-5.0); LYMPH % 25.4 % (24.0-44.0); MEAN CORPUSCULAR HEMOGLOBIN 30.4 pg (27.0-33.0); MEAN CORPUSCULAR HGB CONC 33.9 g/dl (32.0-36.5); MEAN CORPUSCULAR VOLUME 89.8 fl (80.0-96.0); MONO # 0.8 10^3/uL (0.0-0.8); MONO % 20.8 % (2.0-8.0); NEUTROPHILS # 1.6 10^3/uL (1.5-8.5); NEUTROPHILS % 43.5 % (36.0-66.0); PLATELET COUNT, AUTOMATED 187 10^3/uL (150-450); RED BLOOD COUNT 2.83 10^6/uL (4.30-6.10); WHITE BLOOD COUNT 3.7 10^3/uL (4.0-10.0)
[2024-10-27 08:28] LABS: CALCIUM LEVEL 9.3 MG/DL (8.3-10.6); CREATININE FOR GFR 3.75 MG/DL (0.70-1.30); GLOMERULAR FILTRATION RATE 16.2 (>42); POTASSIUM SERUM 3.2 MMOL/L (3.5-5.1)
[2024-10-27] MEDS ORDERED: PANT-23 PO (08:57)
[2024-10-27] MEDS: DOCUSATE SODIUM 100MG CAPSULE PO SCH (09:00)
[2024-10-27] MEDS ORDERED: WARF-21 PO (10:27)
[2024-10-27] MEDS ORDERED: WARF-22 PO (10:27)
[2024-10-27] MEDS ORDERED: HOME MED LIST COMPLETE! XX SCH (10:30)
[2024-10-27] MEDS: PANTOPRAZOLE 40MG TAB (PROTONIX) PO SCH (11:45)
[2024-10-27] MEDS: POTASSIUM CHLORIDE 10MEQ SR TABLET PO ONE ×2 (11:45→21:42)
[2024-10-27] MEDS: NS (Normal Saline) 0.9% 1,000 ML IV SCH (17:15)
[2024-10-27] MEDS: WARFARIN SOD 7.5MG TAB PO SCH (18:06)
[2024-10-27 18:15] VITALS: BP 149/81; TEMP 97.3; O2SAT 99
[2024-10-27] MEDS: EZETIMIBE 10MG TABLET (ZETIA) PO SCH (21:41)
[2024-10-27] MEDS: PRIMIDONE 250 MG TAB PO SCH (21:41)
[2024-10-27] MEDS: PHENYTOIN ER 100 MG CAP PO SCH (21:42)
[2024-10-27 21:44] LABS: KETONE, URINE AUTO RFX TRACE mg/dL (NEGATIVE); LEUKOCYTE ESTERASE UR AUTO RFX NEGATIVE (NEGATIVE); NITRITE, URINE AUTO RFX NEGATIVE (NEGATIVE); RBC, URINE AUTO RFX 1 /HPF (0-3); SQUAM EPITHELIAL CELL UR AURFX 0 /HPF (0-6); WBC, URINE AUTO RFX 0 /HPF (0-3)
[2024-10-27 23:42] VITALS: BP 138/74; TEMP 97.3; O2SAT 94
[2024-10-27 23:56] VITALS: O2SAT 94
[2024-10-28] VITALS (8 sets, daily range): BP systolic 121–146; BP diastolic 76–82; TEMP 97–97.5; O2SAT 93–97
[2024-10-28 05:03] LABS: HEMATOCRIT 25.3 % (42.0-52.0); HEMOGLOBIN 8.5 g/dl (13.5-17.5); MEAN CORPUSCULAR HEMOGLOBIN 30.1 pg (27.0-33.0); MEAN CORPUSCULAR HGB CONC 33.6 g/dl (32.0-36.5); MEAN CORPUSCULAR VOLUME 89.7 fl (80.0-96.0); PLATELET COUNT, AUTOMATED 168 10^3/uL (150-450); RED BLOOD COUNT 2.82 10^6/uL (4.30-6.10); WHITE BLOOD COUNT 3.5 10^3/uL (4.0-10.0)
[2024-10-28 05:12] LABS: INR 3.57; PROTHROMBIN TIME 35.4 SECONDS (12.5-14.5)
[2024-10-28 05:40] LABS: ALBUMIN 2.5 G/DL (3.2-5.2); BILIRUBIN,TOTAL 0.2 MG/DL (0.3-1.2); CREATININE FOR GFR 3.51 MG/DL (0.70-1.30); GLOMERULAR FILTRATION RATE 17.5 (>42); MAGNESIUM LEVEL 1.9 MG/DL (1.8-2.4); POTASSIUM SERUM 3.6 MMOL/L (3.5-5.1); TOTAL PROTEIN 5.1 G/DL (5.7-8.2)
[2024-10-28 11:24] LABS: PERCENT SATURATION 22.3 % (19.7-50.0)
[2024-10-28] MEDS: HYDROCORTISONE 100MG/2ML VIAL IV SCH (13:00)
[2024-10-29] VITALS (8 sets, daily range): BP systolic 107–146; BP diastolic 62–83; TEMP 97–97.7; O2SAT 92–100
[2024-10-29 05:30] LABS: INR 3.93; PROTHROMBIN TIME 38.1 SECONDS (12.5-14.5)
[2024-10-29] MEDS: DARBEPOETIN 100MCG/0.5ML *NON-DIALYSIS* SYRINGE SC SCH (09:53)
[2024-10-29] MEDS: FERRIC CARBOXYMALTOSE INJ 750 MG, VIAL MATE ADAPTER 1 EACH in NS 100 ML IV ONE (12:48)
[2024-10-29 17:55] LABS: HEMATOCRIT 27.6 % (42.0-52.0); HEMOGLOBIN 9.3 g/dl (13.5-17.5); MEAN CORPUSCULAR HEMOGLOBIN 30.2 pg (27.0-33.0); MEAN CORPUSCULAR HGB CONC 33.7 g/dl (32.0-36.5); MEAN CORPUSCULAR VOLUME 89.6 fl (80.0-96.0); PLATELET COUNT, AUTOMATED 234 10^3/uL (150-450); RED BLOOD COUNT 3.08 10^6/uL (4.30-6.10); WHITE BLOOD COUNT 4.4 10^3/uL (4.0-10.0)
[2024-10-29 18:23] LABS: CALCIUM LEVEL 8.9 MG/DL (8.3-10.6); CREATININE FOR GFR 3.4 MG/DL (0.70-1.30); GLOMERULAR FILTRATION RATE 18.2 (>42); POTASSIUM SERUM 3.6 MMOL/L (3.5-5.1)
[2024-10-30] VITALS (7 sets, daily range): BP systolic 109–141; BP diastolic 67–86; TEMP 96.8–97.3; O2SAT 95–98
[2024-10-30 06:34] LABS: INR 2.82; PROTHROMBIN TIME 29.6 SECONDS (12.5-14.5)
[2024-10-30 06:41] LABS: HEMATOCRIT 23.1 % (42.0-52.0); HEMOGLOBIN 8.1 g/dl (13.5-17.5); MEAN CORPUSCULAR HEMOGLOBIN 31.4 pg (27.0-33.0); MEAN CORPUSCULAR HGB CONC 35.1 g/dl (32.0-36.5); MEAN CORPUSCULAR VOLUME 89.5 fl (80.0-96.0); PLATELET COUNT, AUTOMATED 221 10^3/uL (150-450); RED BLOOD COUNT 2.58 10^6/uL (4.30-6.10); WHITE BLOOD COUNT 3.9 10^3/uL (4.0-10.0)
[2024-10-30 07:40] LABS: LYMPHOCYTES 17 % (16-44); MONOCYTES 8 % (0-5); NEUTROPHILS 75 % (28-66)
[2024-10-30 07:41] LABS: PLATELET ESTIMATE NORMAL (NORMAL)
[2024-10-30 10:13] LABS: CALCIUM LEVEL 8.4 MG/DL (8.3-10.6); CREATININE FOR GFR 3.5 MG/DL (0.70-1.30); GLOMERULAR FILTRATION RATE 17.6 (>42); POTASSIUM SERUM 3.3 MMOL/L (3.5-5.1)
[2024-10-30] MEDS: POTASSIUM CHLORIDE 10MEQ SR TABLET PO ONE (11:58)
[2024-10-31] VITALS (9 sets, daily range): BP systolic 114–150; BP diastolic 63–81; TEMP 97–97.5; O2SAT 74–99
[2024-10-31] MEDS: HYDROCORTISONE 10 MG TAB PO SCH (05:34)
[2024-10-31 06:56] LABS: ALBUMIN 2.6 G/DL (3.2-5.2); CALCIUM LEVEL 8.1 MG/DL (8.3-10.6); CREATININE FOR GFR 3.07 MG/DL (0.70-1.30); GLOMERULAR FILTRATION RATE 20.6 (>42); PHOSPHORUS LEVEL 3.9 MG/DL (2.4-5.1); POTASSIUM SERUM 3.3 MMOL/L (3.5-5.1)
[2024-10-31 07:41] LABS: BASO % 0.2 % (0.0-1.0); HEMATOCRIT 22.7 % (42.0-52.0); HEMOGLOBIN 7.7 g/dl (13.5-17.5); LYMPH # 1.1 10^3/uL (1.5-5.0); LYMPH % 20.9 % (24.0-44.0); MEAN CORPUSCULAR HEMOGLOBIN 30.7 pg (27.0-33.0); MEAN CORPUSCULAR HGB CONC 33.9 g/dl (32.0-36.5); MEAN CORPUSCULAR VOLUME 90.4 fl (80.0-96.0); MONO # 0.6 10^3/uL (0.0-0.8); NEUTROPHILS # 3.4 10^3/uL (1.5-8.5); NEUTROPHILS % 67.3 % (36.0-66.0); RED BLOOD COUNT 2.51 10^6/uL (4.30-6.10)
[2024-10-31 08:16] LABS: PLATELET COUNT, AUTOMATED 264 10^3/uL (150-450)
[2024-10-31] MEDS: POTASSIUM CHLORIDE 10MEQ SR TABLET PO SCH (08:46)
[2024-11-01] VITALS (9 sets, daily range): BP systolic 125–162; BP diastolic 70–91; TEMP 97.2–97.7; O2SAT 96–99
[2024-11-01 06:27] LABS: BASO % 0.6 % (0.0-1.0); EOS # 0.1 10^3/uL (0.0-0.5); EOS % 1.5 % (0.0-3.0); HEMATOCRIT 23.4 % (42.0-52.0); HEMOGLOBIN 7.9 g/dl (13.5-17.5); LYMPH # 1.3 10^3/uL (1.5-5.0); LYMPH % 24.4 % (24.0-44.0); MEAN CORPUSCULAR HEMOGLOBIN 30.2 pg (27.0-33.0); MEAN CORPUSCULAR HGB CONC 33.8 g/dl (32.0-36.5); MEAN CORPUSCULAR VOLUME 89.3 fl (80.0-96.0); MONO # 0.7 10^3/uL (0.0-0.8); MONO % 12.5 % (2.0-8.0); NEUTROPHILS # 3.2 10^3/uL (1.5-8.5); NEUTROPHILS % 59.7 % (36.0-66.0); PLATELET COUNT, AUTOMATED 232 10^3/uL (150-450); RED BLOOD COUNT 2.62 10^6/uL (4.30-6.10); WHITE BLOOD COUNT 5.4 10^3/uL (4.0-10.0)
[2024-11-01 06:37] LABS: INR 1.22; PARTIAL THROMBOPLASTIN TIME 26.3 SECONDS (24.8-34.2); PROTHROMBIN TIME 15.7 SECONDS (12.5-14.5)
[2024-11-01 06:48] LABS: ALBUMIN 2.7 G/DL (3.2-5.2); CALCIUM LEVEL 7.9 MG/DL (8.3-10.6); CREATININE FOR GFR 2.83 MG/DL (0.70-1.30); GLOMERULAR FILTRATION RATE 22.7 (>42); PHOSPHORUS LEVEL 3.3 MG/DL (2.4-5.1); POTASSIUM SERUM 3.2 MMOL/L (3.5-5.1)
[2024-11-01] MEDS: WARFARIN SOD 5MG TAB PO ONE (17:21)
[2024-11-02] VITALS (7 sets, daily range): BP systolic 114–154; BP diastolic 73–91; TEMP 97–97.3; O2SAT 96–99
[2024-11-02 05:46] LABS: BASO # 0.1 10^3/uL (0.0-0.2); BASO % 0.8 % (0.0-1.0); EOS # 0.1 10^3/uL (0.0-0.5); EOS % 1.2 % (0.0-3.0); HEMATOCRIT 26.3 % (42.0-52.0); LYMPH # 1.2 10^3/uL (1.5-5.0); LYMPH % 19.7 % (24.0-44.0); MEAN CORPUSCULAR HEMOGLOBIN 30.5 pg (27.0-33.0); MEAN CORPUSCULAR HGB CONC 34.2 g/dl (32.0-36.5); MEAN CORPUSCULAR VOLUME 89.2 fl (80.0-96.0); MONO # 0.8 10^3/uL (0.0-0.8); MONO % 13.1 % (2.0-8.0); NEUTROPHILS # 3.9 10^3/uL (1.5-8.5); NEUTROPHILS % 63.9 % (36.0-66.0); PLATELET COUNT, AUTOMATED 239 10^3/uL (150-450); RED BLOOD COUNT 2.95 10^6/uL (4.30-6.10); WHITE BLOOD COUNT 6.1 10^3/uL (4.0-10.0)
[2024-11-02 06:02] LABS: INR 1.19; PARTIAL THROMBOPLASTIN TIME 24.8 SECONDS (24.8-34.2); PROTHROMBIN TIME 15.4 SECONDS (12.5-14.5)
[2024-11-02 06:21] LABS: ALBUMIN 2.7 G/DL (3.2-5.2); CALCIUM LEVEL 7.9 MG/DL (8.3-10.6); CREATININE FOR GFR 2.73 MG/DL (0.70-1.30); GLOMERULAR FILTRATION RATE 23.7 (>42); POTASSIUM SERUM 3.5 MMOL/L (3.5-5.1)
[2024-11-02] MEDS: HYDROCORTISONE 10 MG TAB PO SCH (17:47)
[2024-11-02] MEDS: WARFARIN SOD 7.5MG TAB PO SCH (17:47)
[2024-11-02] MEDS: WARFARIN SOD 5MG TAB PO ONE (17:47)
[2024-11-03 00:03] VITALS: BP 117/74; TEMP 97.3; O2SAT 98
[2024-11-03 04:08] VITALS: BP 124/78; TEMP 97.2; O2SAT 97
[2024-11-03 05:52] LABS: BASO # 0.1 10^3/uL (0.0-0.2); BASO % 0.8 % (0.0-1.0); EOS # 0.1 10^3/uL (0.0-0.5); EOS % 1.4 % (0.0-3.0); HEMATOCRIT 28.5 % (42.0-52.0); HEMOGLOBIN 9.6 g/dl (13.5-17.5); LYMPH # 1.3 10^3/uL (1.5-5.0); LYMPH % 16.9 % (24.0-44.0); MEAN CORPUSCULAR HEMOGLOBIN 30.6 pg (27.0-33.0); MEAN CORPUSCULAR HGB CONC 33.7 g/dl (32.0-36.5); MEAN CORPUSCULAR VOLUME 90.8 fl (80.0-96.0); MONO % 13.4 % (2.0-8.0); NEUTROPHILS # 4.9 10^3/uL (1.5-8.5); NEUTROPHILS % 64.4 % (36.0-66.0); PLATELET COUNT, AUTOMATED 243 10^3/uL (150-450); RED BLOOD COUNT 3.14 10^6/uL (4.30-6.10); WHITE BLOOD COUNT 7.6 10^3/uL (4.0-10.0)
[2024-11-03 06:08] LABS: INR 1.44; PARTIAL THROMBOPLASTIN TIME 28.7 SECONDS (24.8-34.2); PROTHROMBIN TIME 17.8 SECONDS (12.5-14.5)
[2024-11-03 06:16] LABS: ALBUMIN 2.8 G/DL (3.2-5.2); CALCIUM LEVEL 8.2 MG/DL (8.3-10.6); CREATININE FOR GFR 2.44 MG/DL (0.70-1.30); GLOMERULAR FILTRATION RATE 27.1 (>42); PHOSPHORUS LEVEL 2.8 MG/DL (2.4-5.1); POTASSIUM SERUM 3.6 MMOL/L (3.5-5.1)
[2024-11-03] MEDS: MIDODRINE 5 MG TAB PO SCH (08:00)
[2024-11-03 08:50] VITALS: BP_SYST 129; BP_SYST 131; BP_SYST 134; BP_DIAS 80; BP_DIAS 82
[2024-11-03 12:00] VITALS: BP 143/85; TEMP 98.6; O2SAT 98
[2024-11-03] MEDS: HYDROCORTISONE 10 MG TAB PO SCH (15:35)
[2024-11-03 16:10] VITALS: BP 144/85; TEMP 97.2; O2SAT 99
[2024-11-03] MEDS: WARFARIN SOD 7.5MG TAB PO ONE (17:45)
[2024-11-03 20:07] VITALS: BP 139/82; TEMP 97.5; O2SAT 97
[2024-11-04 04:24] VITALS: BP 147/87; TEMP 97.5; O2SAT 97
[2024-11-04 05:49] LABS: BASO % 0.6 % (0.0-1.0); EOS # 0.2 10^3/uL (0.0-0.5); EOS % 2.8 % (0.0-3.0); HEMATOCRIT 27.1 % (42.0-52.0); HEMOGLOBIN 9.1 g/dl (13.5-17.5); LYMPH # 1.6 10^3/uL (1.5-5.0); LYMPH % 22.7 % (24.0-44.0); MEAN CORPUSCULAR HEMOGLOBIN 30.7 pg (27.0-33.0); MEAN CORPUSCULAR HGB CONC 33.6 g/dl (32.0-36.5); MEAN CORPUSCULAR VOLUME 91.6 fl (80.0-96.0); MONO # 0.9 10^3/uL (0.0-0.8); MONO % 11.7 % (2.0-8.0); NEUTROPHILS # 4.3 10^3/uL (1.5-8.5); NEUTROPHILS % 59.7 % (36.0-66.0); PLATELET COUNT, AUTOMATED 233 10^3/uL (150-450); RED BLOOD COUNT 2.96 10^6/uL (4.30-6.10); WHITE BLOOD COUNT 7.2 10^3/uL (4.0-10.0)
[2024-11-04 06:07] LABS: INR 2.28; PROTHROMBIN TIME 25.2 SECONDS (12.5-14.5)
[2024-11-04 06:17] LABS: ALBUMIN 2.7 G/DL (3.2-5.2); CALCIUM LEVEL 7.9 MG/DL (8.3-10.6); CREATININE FOR GFR 2.36 MG/DL (0.70-1.30); GLOMERULAR FILTRATION RATE 28.2 (>42); PHOSPHORUS LEVEL 2.9 MG/DL (2.4-5.1); POTASSIUM SERUM 3.5 MMOL/L (3.5-5.1)
[2024-11-04 08:15] VITALS: BP 111/74; TEMP 97.3; O2SAT 99
[2024-11-04] MEDS ORDERED: HYDR-4468 PO (11:42)
[2024-11-04 12:00] VITALS: BP 147/88; TEMP 97.3; O2SAT 100
== END 2024-11-04 13:00 | disposition home or self-care (01) | DRG 644 ==
LOC: M ED 22:22 → M ED INP 10-27 05:24 → M MSPAV 10-27 18:21
PROVIDERS: ADMIT Student in an Organized Health Care Education/Training Program; ATTEND Internal Medicine Nephrology
PROC: 30233N1 Transfusion of Nonautologous Red Blood Cells into Peripheral Vein, Percutaneous Approach (ICD-10-PCS; principal; 2024-11-01)
DX: E27.3 Drug-induced adrenocortical insufficiency (principal); N18.4 Chronic kidney disease, stage 4 (severe); N17.9 Acute kidney failure, unspecified; E87.1 Hypo-osmolality and hyponatremia; C64.2 Malignant neoplasm of left kidney, except renal pelvis; C78.89 Secondary malignant neoplasm of other digestive organs; R53.1 Weakness; R29.6 Repeated falls; I25.10 Atherosclerotic heart disease of native coronary artery without angina pectoris; G40.909 Epilepsy, unspecified, not intractable, without status epilepticus; K21.9 Gastro-esophageal reflux disease without esophagitis; I12.9 Hypertensive chronic kidney disease with stage 1 through stage 4 chronic kidney disease, or unspecified chronic kidney disease; I95.1 Orthostatic hypotension; T38.0X5A Adverse effect of glucocorticoids and synthetic analogues, initial encounter; D63.1 Anemia in chronic kidney disease; E87.6 Hypokalemia; F41.1 Generalized anxiety disorder; Z90.5 Acquired absence of kidney; Z95.820 Peripheral vascular angioplasty status with implants and grafts; Z95.5 Presence of coronary angioplasty implant and graft; Z87.891 Personal history of nicotine dependence; Z79.01 Long term (current) use of anticoagulants; Z79.899 Other long term (current) drug therapy; Z86.718 Personal history of other venous thrombosis and embolism

== ENCOUNTER → 2024-11-18 | Outpatient (RCR) | payer MEDICARE ==
[~2024-11-18] MED LIST changes: +HYDR-4468 PO; +PANT-23 PO
== END ==
LOC: M ONCR 10-29 14:00
PROVIDERS: ATTEND General Practice
DX: Z51.0 Encounter for antineoplastic radiation therapy (principal); C64.2 Malignant neoplasm of left kidney, except renal pelvis

== ENCOUNTER → 2024-11-19 | Outpatient (REF) | payer MEDICARE ==
[2024-11-19 19:15] LABS: PERCENT SATURATION 46.8 % (19.7-50.0)
== END ==
LOC: M LAB REF 16:59
PROVIDERS: ATTEND Internal Medicine Nephrology
DX: D50.9 Iron deficiency anemia, unspecified (principal)

== ENCOUNTER 2024-11-29 11:43 | Observation (INO) | payer MEDICARE ==
[~2024-11-29] VITALS: Ht 165.1 cm; Wt 73.9 kg
[2024-11-29] MEDS ORDERED: PANT20TA6 PO (12:00)
[2024-11-29] MEDS: NS (Normal Saline) 0.9% 1,000 ML IV ONE ×2 (12:15→15:50)
[2024-11-29 12:36] LABS: BASO % 0.4 % (0.0-1.0); EOS # 0.3 10^3/uL (0.0-0.5); EOS % 5.5 % (0.0-3.0); HEMATOCRIT 35.3 % (42.0-52.0); HEMOGLOBIN 11.8 g/dl (13.5-17.5); LYMPH # 0.8 10^3/uL (1.5-5.0); LYMPH % 18.1 % (24.0-44.0); MEAN CORPUSCULAR HEMOGLOBIN 31.4 pg (27.0-33.0); MEAN CORPUSCULAR HGB CONC 33.4 g/dl (32.0-36.5); MEAN CORPUSCULAR VOLUME 93.9 fl (80.0-96.0); MONO # 0.8 10^3/uL (0.0-0.8); MONO % 17.7 % (2.0-8.0); NEUTROPHILS # 2.7 10^3/uL (1.5-8.5); NEUTROPHILS % 57.9 % (36.0-66.0); PLATELET COUNT, AUTOMATED 167 10^3/uL (150-450); RED BLOOD COUNT 3.76 10^6/uL (4.30-6.10); WHITE BLOOD COUNT 4.6 10^3/uL (4.0-10.0)
[2024-11-29 12:56] LABS: KETONE, URINE AUTO RFX NEGATIVE (NEGATIVE); LEUKOCYTE ESTERASE UR AUTO RFX NEGATIVE (NEGATIVE); NITRITE, URINE AUTO RFX NEGATIVE (NEGATIVE); RBC, URINE AUTO RFX 1 /HPF (0-3); SQUAM EPITHELIAL CELL UR AURFX 0 /HPF (0-6); WBC, URINE AUTO RFX 1 /HPF (0-3)
[2024-11-29] MEDS: LIDOCAINE VISCOUS 2% SOLN 15ML UDC PO ONE (12:56)
[2024-11-29] MEDS: HYDROCORTISONE 100MG/2ML VIAL IV ONE (12:56)
[2024-11-29] MEDS: MAALOX 30 ML SUSP *UDC PO ONE (12:56)
[2024-11-29 12:57] LABS: CK-MB VALUE MASS < 1.0 NG/ML (<3.6); LIPASE 37 U/L (12-53)
[2024-11-29 12:59] LABS: ALBUMIN 2.5 G/DL (3.2-5.2); ALKALINE PHOSPHATASE 68 U/L (40-129); ALT/SGPT 16 U/L (7.0-40); AST/SGOT 24 U/L (<34); BILIRUBIN,DIRECT < 0.1 MG/DL (<0.4); BILIRUBIN,TOTAL 0.2 MG/DL (0.3-1.2); BLOOD UREA NITROGEN 39 MG/DL (9-23); CALCIUM LEVEL 7.3 MG/DL (8.3-10.6); CARBON DIOXIDE LEVEL 21 MMOL/L (20-31); CHLORIDE LEVEL 104 MMOL/L (98-107); CREATININE FOR GFR 1.82 MG/DL (0.70-1.30); GLOMERULAR FILTRATION RATE 38.5 (>42); GLUCOSE, FASTING 105 MG/DL (74-106); POTASSIUM SERUM 4.3 MMOL/L (3.5-5.1); SODIUM LEVEL 136 MMOL/L (136-145)
[2024-11-29 13:00] LABS: INR 3.75; PROTHROMBIN TIME 36.7 SECONDS (12.5-14.5)
[2024-11-29 13:02] LABS: CPK CREATINE PHOSPHOKINASE 40 U/L (46-171)
[2024-11-29 14:03] LABS: CK-MB VALUE MASS < 1.0 NG/ML (<3.6); CPK CREATINE PHOSPHOKINASE 39 U/L (46-171); MB/CK RELATIVE INDEX 2.56 (< OR =4)
[2024-11-29 14:11] LABS: MAGNESIUM LEVEL 1.6 MG/DL (1.8-2.4)
[2024-11-29] MEDS: PANTOPRAZOLE 40MG VIAL IV ONE (17:11)
[2024-11-29] MEDS: SUCRALFATE SUSP 1GM/10ML UD PO ONE (17:11)
[2024-11-29] MEDS ORDERED: HYDR-4468 PO (17:25)
[2024-11-29] MEDS ORDERED: HOME MED LIST COMPLETE! XX SCH (17:30)
[2024-11-29] MEDS ORDERED: MORPHINE 4 MG/ML 1ML VIAL IV PRN (17:55)
[2024-11-29] MEDS ORDERED: ACETAMINOPHEN 325 MG TAB PO PRN (17:55)
[2024-11-29] MEDS: SUCRALFATE 1 GM TAB PO SCH (18:22)
[2024-11-29] MEDS: NS (Normal Saline) 0.9% 1,000 ML IV SCH (18:22)
[2024-11-29 20:30] VITALS: BP 98/62; TEMP 98.8; O2SAT 99
[2024-11-29] MEDS: EZETIMIBE 10MG TABLET PO SCH (22:18)
[2024-11-29] MEDS: PANTOPRAZOLE 40MG VIAL IV SCH (22:19)
[2024-11-29] MEDS: PHENYTOIN ER 100 MG CAP PO SCH (22:19)
[2024-11-29] MEDS: PRIMIDONE 250 MG TAB PO SCH (22:19)
[2024-11-30 04:00] VITALS: BP 128/68; TEMP 98.8; O2SAT 95
[2024-11-30 05:30] LABS: HEMATOCRIT 29.8 % (42.0-52.0); MEAN CORPUSCULAR HEMOGLOBIN 31.4 pg (27.0-33.0); MEAN CORPUSCULAR HGB CONC 32.6 g/dl (32.0-36.5); MEAN CORPUSCULAR VOLUME 96.4 fl (80.0-96.0); PLATELET COUNT, AUTOMATED 129 10^3/uL (150-450); RED BLOOD COUNT 3.09 10^6/uL (4.30-6.10); WHITE BLOOD COUNT 3.2 10^3/uL (4.0-10.0)
[2024-11-30 05:32] LABS: HEMOGLOBIN 9.7 g/dl (13.5-17.5)
[2024-11-30 05:36] LABS: INR 4.26; PROTHROMBIN TIME 40.5 SECONDS (12.5-14.5)
[2024-11-30 05:47] LABS: CREATININE FOR GFR 1.74 MG/DL (0.70-1.30); GLOMERULAR FILTRATION RATE 40.6 (>42); POTASSIUM SERUM 3.5 MMOL/L (3.5-5.1)
[2024-11-30] MEDS: HYDROCORTISONE 10 MG TAB PO SCH (06:08)
[2024-11-30] MEDS ORDERED: SENNA 8.6 MG TAB PO PRN (06:40)
[2024-11-30] MEDS: MIRALAX *UNIT DOSE* 17GM PACKET PO SCH (09:00)
[2024-11-30 12:05] VITALS: BP 133/68; TEMP 98.8; O2SAT 98
[2024-11-30 20:00] VITALS: BP 132/68; TEMP 98; O2SAT 96
[2024-12-01 04:00] VITALS: BP 127/68; TEMP 98.4; O2SAT 97
[2024-12-01 05:57] LABS: BASO % 0.6 % (0.0-1.0); EOS # 0.2 10^3/uL (0.0-0.5); EOS % 6.8 % (0.0-3.0); HEMATOCRIT 28.8 % (42.0-52.0); HEMOGLOBIN 9.4 g/dl (13.5-17.5); LYMPH # 0.9 10^3/uL (1.5-5.0); MEAN CORPUSCULAR HGB CONC 32.6 g/dl (32.0-36.5); MONO # 0.4 10^3/uL (0.0-0.8); MONO % 12.4 % (2.0-8.0); NEUTROPHILS # 1.8 10^3/uL (1.5-8.5); NEUTROPHILS % 53.3 % (36.0-66.0); PLATELET COUNT, AUTOMATED 132 10^3/uL (150-450); RED BLOOD COUNT 3.03 10^6/uL (4.30-6.10); WHITE BLOOD COUNT 3.4 10^3/uL (4.0-10.0)
[2024-12-01 06:11] LABS: INR 2.17; PROTHROMBIN TIME 24.3 SECONDS (12.5-14.5)
[2024-12-01 06:27] LABS: CREATININE FOR GFR 1.74 MG/DL (0.70-1.30); GLOMERULAR FILTRATION RATE 40.6 (>42); POTASSIUM SERUM 3.2 MMOL/L (3.5-5.1)
[2024-12-01 07:13] LABS: MAGNESIUM LEVEL 1.6 MG/DL (1.8-2.4)
[2024-12-01] MEDS: POTASSIUM CHLORIDE 10MEQ SR TABLET PO ONE ×2 (08:39→11:16)
[2024-12-01] MEDS: MAG SULF 1GM/100ML (MAG RUN) 1 GM in IV 1 EA IV SCH (08:39)
[2024-12-01] MEDS ORDERED: SUCR1TA PO (08:49)
[2024-12-01] MEDS ORDERED: PROT1TAB2 PO (08:49)
[2024-12-01] MEDS ORDERED: MIRA3350 PO (08:51)
== END 2024-12-01 11:54 | disposition home or self-care (01) ==
LOC: M ED 11:43 → M ED INP 17:54 → M MSPAV 20:30
PROVIDERS: ADMIT Internal Medicine; ATTEND Internal Medicine
DX: R10.13 Epigastric pain (principal); R11.2 Nausea with vomiting, unspecified; R42 Dizziness and giddiness; Z79.52 Long term (current) use of systemic steroids; G40.909 Epilepsy, unspecified, not intractable, without status epilepticus; E27.40 Unspecified adrenocortical insufficiency; E87.6 Hypokalemia; E83.42 Hypomagnesemia; R79.1 Abnormal coagulation profile; K59.00 Constipation, unspecified; C64.2 Malignant neoplasm of left kidney, except renal pelvis; Z90.5 Acquired absence of kidney; N18.4 Chronic kidney disease, stage 4 (severe); N12 Tubulo-interstitial nephritis, not specified as acute or chronic; Z92.25 Personal history of immunosuppression therapy; I25.10 Atherosclerotic heart disease of native coronary artery without angina pectoris; I12.9 Hypertensive chronic kidney disease with stage 1 through stage 4 chronic kidney disease, or unspecified chronic kidney disease; K21.9 Gastro-esophageal reflux disease without esophagitis; Z98.61 Coronary angioplasty status; Z86.718 Personal history of other venous thrombosis and embolism; Z86.73 Personal history of transient ischemic attack (TIA), and cerebral infarction without residual deficits; Z80.0 Family history of malignant neoplasm of digestive organs; Z80.3 Family history of malignant neoplasm of breast; Z82.49 Family history of ischemic heart disease and other diseases of the circulatory system; Z79.899 Other long term (current) drug therapy; Z79.01 Long term (current) use of anticoagulants; Z87.891 Personal history of nicotine dependence
CPT/HCPCS: 36415; 71045; 74176; 74181; 76700; 80047; 80048; 80076; 81001; 82550; 82553; 83605; 83690; 83735; 84484; 85025; 85027; 85610; 87486; 87581; 87633; 87798; 93005; 93041; 96365; 96366; 96375; 96376; 99285; G0378; J1720; J2470; J3475

== ENCOUNTER → 2025-02-23 | Outpatient (CLI) | payer MEDICARE ==
[~2025-02-23] MED LIST changes: +MIRA3350 PO; +PANT20TA6 PO; +PROT1TAB2 PO; +SUCR1TA PO
== END ==
LOC: M ONCR 13:19
PROVIDERS: ATTEND General Practice
DX: C64.2 Malignant neoplasm of left kidney, except renal pelvis (principal); D37.8 Neoplasm of uncertain behavior of other specified digestive organs; Z90.5 Acquired absence of kidney; Z87.891 Personal history of nicotine dependence; Z79.02 Long term (current) use of antithrombotics/antiplatelets; Z79.620 Long term (current) use of immunosuppressive biologic; Z79.899 Other long term (current) drug therapy

== ENCOUNTER → 2025-05-25 | Outpatient (CLI) | payer MEDICARE ==
[~2025-05-25] MED LIST changes: -EZET10TA21 PO; +EZET10TA57 PO
== END ==
LOC: M PLARAD 13:51
PROVIDERS: ATTEND General Practice
DX: C64.2 Malignant neoplasm of left kidney, except renal pelvis (principal)
CPT/HCPCS: 78815; A9552

== ENCOUNTER → 2025-06-01 | Outpatient (CLI) | payer MEDICARE | LOC: M ONCR 13:03 | PROVIDERS: ATTEND General Practice | DX: C64.2 Malignant neoplasm of left kidney, except renal pelvis (principal); R97.20 Elevated prostate specific antigen [PSA]; K86.9 Disease of pancreas, unspecified; Z90.5 Acquired absence of kidney; Z92.3 Personal history of irradiation; Z79.890 Hormone replacement therapy; Z87.891 Personal history of nicotine dependence; Z79.02 Long term (current) use of antithrombotics/antiplatelets; Z79.899 Other long term (current) drug therapy; Z79.620 Long term (current) use of immunosuppressive biologic ==